=== PATIENT | male | born 2005 | race Caucasian/White ===

== ENCOUNTER 2024-01-07 10:16 | Emergency (ER) | payer OTHER, SELFPAY ==
[2024-01-07 10:20] VITALS: BP 153/92; PULSE 97; RESP 18; TEMP 37.1; O2SAT 100
--- NOTE | 2024-01-07 10:50 | ED.GENADULT ---
HPI - General Adult General Chief complaint: Headache Stated complaint: anitha bess History of Present Illness HPI narrative: 18-year-old male presenting to the emergency department for evaluation for lightheaded dizziness with associated nausea vomiting and diarrhea. Patient states since Thursday he has had some lightheaded and dizziness and on Thursday and he began developing nausea vomiting and diarrhea and this morning patient states he developed a severe headache. Patient states he does often get headaches but this headache feels more severe than his typical headaches. Related Data Allergies Allergy/AdvReac Type Severity Reaction Status Date / Time No Known Allergies Allergy Verified 01/07/24 10:25 Review of Systems Review of Systems: All systems reviewed & are unremarkable except as noted in HPI and below PMFSH Past Medical History Medical History (Updated 01/07/24 @ 12:41 by Wu Godinez MD) Healthy adolescent Surgical History Surgical History (Updated 03/11/19 @ 15:48 by Niecy Landa) No history of previous surgery Social History Social History (Updated 03/11/19 @ 15:49 by Niecy Landa) Smoking status: Never smoker Exam Narrative: APPEARANCE: uncomfortable appearing on presentation HEAD: normocephalic, atraumatic. EYES: PERRLA/EOMI, conjunctivae clear. NOSE: Normal no drainage EARS:TMS clear with good light reflex. THROAT: Pharynx clear, no exudate. NECK: Supple. No adenopathy, no masses. RESPIRATORY: Airway patent, respirations nonlabored. Clear to auscultation bilaterally, no rales, rhonchi, wheezing. CARDIOVASCULAR: Regular rate and rhythm without murmurs rubs or gallops. ABDOMINAL: Soft, nontender, nondistended, normal bowel sounds MUSCULOSKELETAL: Moves all extremities. Strength/ROM intact, No edema, No calf tenderness. NEURO: Alert. Cranial nerves II through XII intact. grossly intact SKIN: Warm, dry. Normal Color Course Course Emergency Course: patient's headache resolved and patient was discharged to home. Vital Signs Vital signs: Vital Signs Temperature 98.7 F 01/07/24 10:20 Pulse Rate 97 01/07/24 10:20 Respiratory Rate 18 01/07/24 10:20 Blood Pressure 153/92 H 01/07/24 10:20 Pulse Oximetry 100 01/07/24 10:20 Temperature 97.9 F 01/07/24 12:50 Pulse Rate 111 H 01/07/24 12:50 Respiratory Rate 18 01/07/24 12:50 Blood Pressure 108/92 H 01/07/24 12:50 Pulse Oximetry 100 01/07/24 12:50 Medical Decision Making MDM Narrative Medical decision making narrative: 18-year-old male presenting to the emergency department for evaluation for nausea vomiting diarrhea and headache. Patient was treated with IV fluids, Compazine and Toradol and states his headache is completely resolved. Patient is afebrile with an elevated leukocytosis of 16.5 and hemoglobin of 13.2. Patient has no acute abnormalities on his CMP UA was negative for infection. Patient was negative for influenza RSV and for COVID. on re-evaluation patient states symptoms are completely resolved. Patient was advised to take Zofran for further nausea and to follow a clear liquid diet for the next few days. All questions concerns were addressed. Differential Diagnosis Differential Diagnosis: Headache, migraine, dehydration Vital Signs Vital Signs: Vital Signs Temperature 98.7 F 01/07/24 10:20 Pulse Rate 97 01/07/24 10:20 Respiratory Rate 18 01/07/24 10:20 Blood Pressure 153/92 H 01/07/24 10:20 Pulse Oximetry 100 01/07/24 10:20 Temperature 97.9 F 01/07/24 12:50 Pulse Rate 111 H 01/07/24 12:50 Respiratory Rate 18 01/07/24 12:50 Blood Pressure 108/92 H 01/07/24 12:50 Pulse Oximetry 100 01/07/24 12:50 Lab Data Lab results reviewed: Yes I reviewed the patient's lab results. 01/07/24 11:17 01/07/24 11:17 Labs: Lab Results 01/07/24 01/07/24 Range/Units 11:17 11:18 WBC 16.5 H (4.5-1
[2024-01-07] MEDS: SODIUM CHLORIDE 0.9% IV 1,000 ML 999 ML IV CONT (11:20)
[2024-01-07] MEDS: KETOROLAC 15 MG/ML VIAL (*BKC) IV PUSH (11:20)
[2024-01-07] MEDS: PROCHLORPERAZINE EDISYLATE 10 MG/2 ML VIAL IV PUSH (11:21)
[2024-01-07 11:30] LABS: Basophils Percent Auto 0.2 % (0.2-1.2); Eosinophils Percent Auto 0.1 % (0-4.4); Hematocrit 40.7 % (42.0-52.0); Hemoglobin 13.2 g/dL (14.0-18.0); Immature Granulocyte Absolute 0.09 K/mm3 (0.00-0.031); Immature Granulocyte Percent A 0.5 % (0-0.5); Lymphocytes Absolute Auto 0.55 K/mm3 (0.9-3.2); Lymphocytes Percent Auto 3.3 % (18.3-44.2); Mean Corpuscular HGB Conc 32.4 g/dl (32-36); Mean Corpuscular Hemoglobin 25.3 pg (26-34); Mean Corpuscular Volume 78.1 fl (80-100); Mean Platelet Volume 10.4 fl (7.4-10.4); Monocytes Absolute Auto 0.5 K/mm3 (0.1-0.6); Neutrophils Absolute Auto 15.3 K/mm3 (1.3-6.7); Neutrophils Percent Auto 92.9 % (45.5-73.1); Platelet Count Result 296 k/mm3 (150-375); Red Blood Count 5.21 M/mm3 (4.6-6.20); Red Cell Distribution Width 15.9 % (11.5-14.5); White Blood Count 16.5 K/mm3 (4.5-10.0)
[2024-01-07 11:34] LABS: Add Urine Microscopic? YES; Appearance Urine Clear (Clear); Bacteria Urine None Seen /hpf; Bilirubin Urine Negative (Negative); Blood Urine Negative (Negative); Color Urine Yellow (Yellow); Glucose Urine UA Negative (Negative); Ketones Urine Trace mg/dL (Negative); Leukocyte Esterase Ur Negative LEU/UL (Negative); Nitrate Urine Negative (Negative); Non Pathogenic Casts 0-2; Protein Urine 1+ mg/dL (Negative); RBC Urine 0-2 /hpf (0-2); Squamous Epithelial Cell Urine None Seen /hpf (Few); WBC Urine 0-5 /hpf (0-3); pH Urine 6.5 (5.0-9.0)
[2024-01-07 11:45] LABS: Alanine Aminotransferase 23 U/L (6-50); Albumin Level 4.2 g/dL (3.5-5.1); Alkaline Phosphatase 70 U/L (38-126); Anion Gap 10 mmol/L (4-12); Aspartate Amino Transferase 22 U/L (17-59); Bilirubin,Total 0.9 mg/dL (0.2-1.3); Blood Urea Nitrogen 15 mg/dL (9-20); Calcium 8.4 mg/dL (8.4-10.2); Carbon Dioxide 26 mmol/L (22-30); Chloride 99 mmol/L (98-107); Estimated CRCL calculation 330 ml/min; Estimated Glomerular Filt Rate > 60; Glucose 120 mg/dL (65-110); Lipase 42 U/L (23-300); Sodium 135 mmol/L (137-145)
[2024-01-07 12:07] LABS: Influenza A QL RT-PCR Negative (Negative); Influenza B QL RT-PCR Negative (Negative); RSV RNA, RT-PCR Negative (Negative); SARS-CoV-2 RNA PCR Negative (Negative)
[2024-01-07 12:35] VITALS: BP 102/82; PULSE 107; RESP 18; O2SAT 99
[2024-01-07 12:50] VITALS: BP 108/92; PULSE 111; RESP 18; TEMP 36.6; O2SAT 100
== END 2024-01-07 12:51 | disposition home or self-care (01) ==
PROVIDERS: Emergency Provider Emergency Medicine
DX: R51.9 Headache, unspecified (principal); R11.2 Nausea with vomiting, unspecified; R19.7 Diarrhea, unspecified; Z20.822 Contact with and (suspected) exposure to COVID-19
CPT/HCPCS: 36415; 80053; 81001; 83690; 85025; 87637; 96361; 96374; 96375; 99284; J0780; J1885; J7030